=== PATIENT | female | born 1980 | race Caucasian/White ===

== ENCOUNTER 2018-11-05 20:55 | Observation (INO) | payer OTHER ==
[~2018-11-05 20:55] MED LIST: ISOVUE-370 76%-LOCM 1 ML ONE
--- NOTE | 2018-11-05 21:21 | CT ---
CT brain. HISTORY: Stroke. Facial droop. Noncontrast enhanced CT images of brain obtained. The brain is unremarkable. No evidence of acute hemorrhages strokes or contusion seen. IMPRESSION: Normal CT brain.
[2018-11-05 21:36] LABS: #Eosinphils 0.1 thou/uL (0.0-0.7); #Lymphocytes 4.5 thou/uL (1.20-3.40); #Monocytes 0.7 thou/uL (0.11-0.59); #Neutrophils 11.6 thou/uL (1.40-6.50); %Basophils 0.2 % (0.0-1.0); %Eosinophils 0.7 % (0.0-10.0); %Lymphocytes 26.5 % (21.0-51.0); %Monocytes 4.3 % (0.0-10.0); %Neutrophils 68.2 % (42.0-75.0); Mean Corpuscular Hemoglobin 27.9 pg (27.0-31.0); Mean Corpuscular Volume 84.6 fL (78.0-98.0); Mean Platelet Volume 8.9 fL (7.4-10.4); Platelet Count 299 thou/uL (130-400); RBC Distribution Width 14.4 % (11.5-14.5); Red Blood Cell (RBC) Count 4.67 mill/uL (4.20-5.40)
--- NOTE | 2018-11-05 21:40 | CT ---
Carotid and intracranial CTA. HISTORY: Left facial drooping. Contrast-enhanced CTA carotid arteries and intracranial CTA performed. 2-D and 3-D reconstruction lula ges performed on an independent 3-D workstation. The visualized portion of the aortic arch is unremarkable. The right brachiocephalic artery is patent. The right and left common carotid, internal carotid, external carotid arteries are patent. The petrou s, cavernous and supraclinoid ICAs are patent. The right and left STEVE and MCA vessels are patent. The right and left vertebral arteries are patent. The basilar artery and posterior cerebral arteries are patent. IMPRESSION: Normal carotid and intracranial CTA.
[2018-11-05 21:44] LABS: PTT 26.2 SEC (22.9-36.1); Prothrombin Time 13.2 SEC (12.0-14.7)
[2018-11-05 21:57] LABS: BHCG - Serum Negative (NEGATIVE); Pregs Control Background? CLEAR/WHITE (CLR/WHITE); Pregs Control Bar Appear? YES (CONTROL BAR)
[2018-11-05 22:11] LABS: ALT (SGPT) 15 U/L (8-55); AST (SGOT) 16 U/L (5-34); Albumin 4.2 g/dL (3.5-5.0); Alkaline Phosphatase 88 U/L (40-150); Anion Gap 13 mmol/L (10-20); BUN (Urea Nitrogen) 8 mg/dL (7.0-18.7); Bilirubin, Total 0.2 mg/dL (0.2-1.2); CK (CPK) 118 U/L (29-168); Calc. Creatinine Clearance 0 mL/min (70-130); Calcium 9.2 mg/dL (7.8-10.44); Carbon Dioxide 24 mmol/L (22-29); Chloride 107 mmol/L (98-107); Estimated GFR-MDRD 63; Globulin 3.1 g/dL (2.4-3.5); Glucose 87 mg/dL (70-105); Potassium 3.7 mmol/L (3.5-5.1); Protein, Total 7.3 g/dL (6.0-8.3); Sodium 140 mmol/L (136-145)
[2018-11-05] MEDS ORDERED: Aspirin Chewable 81 MG TAB ONE (22:22)
--- NOTE | 2018-11-05 22:50 | RAD ---
AP view chest. HISTORY: Stroke. AP view chest obtained. The lungs are well aerated. No evidence of active intrathoracic disease seen. No evidence of effusions, pneumonia or pneumothorax seen IMPRESSION: unremarkable AP view chest.
[2018-11-05 23:27] LABS: Bilirubin Negative (Negative); Blood, Urine Negative (Negative); Clarity CLEAR (Clear); Glucose, Urine (Dipstick) Negative (Negative); Leukocyte Negative (Negative); Nitrite Negative (Negative); Protein, Urine (Dipstick) Negative (Neg-Trace); Urobilinogen 0.2 mg/dL (0.2-1.0); pH, Urine 5.5 (5.0-9.0)
[2018-11-05 23:29] LABS: Specific Gravity, Urine 1.057 (1.002-1.036)
[2018-11-06 01:13] LABS: Troponin I Less than 0.010 ng/mL (< 0.028)
[2018-11-06 02:40] VITALS: BMI 40.2
[2018-11-06 04:49] LABS: Troponin I Less than 0.010 ng/mL (< 0.028)
[2018-11-06] MEDS ORDERED: Senokot S 8.6-50 MG TAB PO PRN (07:35)
[2018-11-06] MEDS ORDERED: Eucerin (Mineral Oil/Petrolatum,White) 30 gm Jar TOP PRN (07:35)
[2018-11-06] MEDS ORDERED: Sodium Chloride 0.65% Nasal 44 ML BOT EA NARE PRN (07:35)
[2018-11-06] MEDS ORDERED: Acetaminophen 325 MG TAB PO PRN (07:35)
[2018-11-06] MEDS ORDERED: Ondansetron ODT 4 MG TAB PO PRN (07:35)
[2018-11-06] MEDS ORDERED: Calcium Carbonate 500 MG ChewTAB PO PRN (07:35)
[2018-11-06] MEDS ORDERED: Ondansetron PF 4 MG/2 ML Vial IVP PRN (07:35)
[2018-11-06] MEDS ORDERED: Loperamide HCl 2 MG CAP PO PRN (07:35)
[2018-11-06] MEDS ORDERED: Zolpidem Tartrate 5 MG TAB PO PRN (07:35)
[2018-11-06] MEDS ORDERED: Loratadine 10 MG TAB PO PRN (07:35)
[2018-11-06] MEDS ORDERED: Cepastat Lozenges 1 LOZ PO PRN (07:35)
[2018-11-06] MEDS ORDERED: Bisacodyl 10 MG SUPP PR PRN (07:35)
[2018-11-06] MEDS ORDERED: HYDROcodone/Acetaminophen 5/325 mg Tablet PO PRN (07:35)
[2018-11-06] MEDS ORDERED: hydrALAZINE 20 MG/ML VIAL SLOW IVP PRN (07:35)
[2018-11-06] MEDS ORDERED: Artificial Tears 18 DROP/0.9 ML EA EYE PRN (07:35)
[2018-11-06] MEDS ORDERED: Diabetic Tussin 200 MG/10 ML UDCUP PO PRN (07:35)
[2018-11-06] MEDS ORDERED: NORETHINDRONE AC ETH ESTRADIOL PO SCH (09:00)
[2018-11-06] MEDS ORDERED: Famotidine 20 MG TAB PO SCH (09:00)
--- NOTE | 2018-11-06 10:30 | MRI ---
MRI BRAIN WITH AND WITHOUT CONTRAST: SEVENTH (FACIAL) CRANIAL NERVE PROTOCOL Date: 11/06/2018 HISTORY: 38-year-old female with left facial droop TECHNIQUE: Multiple sequences obtained in axial, sagittal, and coronal planes; both whole brain images and thin slices through the paths of the 7th cranial nerves, pre and post IV injection of gadolinium-based contrast agent. FINDINGS: The ventricles are normal in size and configuration. There is no moderate sized or large cortical inf arction of any age, restricted diffusion, abnormal intra-axial enhancement, mass, midline shift or any other mass effect, recent intra-axial hemorrhage, or extra-axial fluid collection. There are numerous small, subcentimeter focal T2 hyperintense lesions in the bifrontal subcortical an d deep white matter. These are nonspecific, but probably represent chronic ischemic white matter changes due to microvascular atherosclerosis. Multiple sclerosis is not excluded, although the lesion s are not necessarily highly characteristic of MS plaques. There is no involvement of the brachium pontis, cerebellum, or brainstem. There is no abnormal enhancement, mass, or morphologic abnormality, involving the cerebellopontine an gles, seventh-8th nerve complexes, internal auditory canals, cochleae, vestibules, vestibular aqueducts, or semicircular canals. The degree of mild enhancement of the cranial nerves VII is symmet rical bilaterally. There is no evidence of any parotid neoplastic tumor. IMPRESSION: 1. Mild chronic ischemic white matter changes, significantly greater than expected for this age (38 y ears). 2. Otherwise negative.
[2018-11-06] MEDS ORDERED: Gadobenate Dimeglumine 529 MG/1 ML (20ML VIAL) ONE (11:50)
--- NOTE | 2018-11-06 11:51 | SS ---
DATE OF ADMISSION: 11/06/2018 DATE OF DISCHARGE: 11/06/2018 PRIMARY CARE PHYSICIAN: [facility] Call admission. REASON FOR ADMISSION: Facial drooping. HISTORY OF PRESENT ILLNESS: A 38-year-old female who has no significant past medical history, who presented to the emergency room with facial drooping. She reports that for 1 week, she was experiencing difficulty swallowing. On Sunday , she also noticed heaviness on the left side of face and facial drooping, which was happening intermittently. She also noticed some slurring of speech. She was also having difficulty holding objects with right hand sometimes, but she did not have any motor weakness. Subsequently, she did not have any hoarseness of voice or any hearing problem. She denies any diplopia. She denies any headaches. She denies any chest pain, palpitation, shortness of breath. She denies any UTI symptoms. She denies any constipation, diarrhea, melena, or hematochezia. She denies any unsteadiness or focal motor deficit. The patient was also evaluated by primary care physician and the patient also reports that many family members and many co- workers noticed that her face was asymmetric. In the emergency room, the patient had CT brain and CT [place], both were negative. Chest x-ray was normal. Routine blood test only showed leukocytosis. This patient denies any travel or any skin rash. She denies any upper or lower respiratory symptoms. REVIEW OF SYSTEMS: CONSTITUTIONAL: Negative for weight loss or gain, ability to conduct usual activities. SKIN: Negative for rash, itching. EYES: Negative for double vision, pain. ENT/MOUTH: Negative for nose bleeding, neck stiffness, pain, tenderness. CARDIOVASCULAR: Negative for palpitations, dyspnea on exertion, orthopnea. RESPIRATORY: Negative for shortness of breath, wheezing, cough, hemoptysis, fever or night sweats. GASTROINTESTINAL: Negative for poor appetite, abdominal pain, heartburn, nausea , vomiting, constipation, or diarrhea. GENITOURINARY: Negative for urgency, frequency, dysuria, nocturia. MUSCULOSKELETAL: Negative for pain, swelling. NEUROLOGIC/PSYCHIATRIC: Negative for anxiety, depression. ALLERGY/IMMUNOLOGIC: Negative for skin rash, bleeding tendency. Please see my HPI for pertinent positives and negatives. All other review of systems reviewed and negative except as mentioned in the HPI. PAST MEDICAL HISTORY: Reviewed and negative. PAST SURGICAL HISTORY: , dental work. PAST PSYCHIATRIC HISTORY: Reviewed and negative. SOCIAL HISTORY: The patient drinks alcohol socially. She denies any smoking. She denies any other illicit drug abuse. 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 FAMILY HISTORY: No strong family history of premature coronary artery disease, stroke, or cancer. ALLERGIES: NO KNOWN DRUG ALLERGIES. CURRENT HOME MEDICATIONS: The patient is taking [id number] medication and control pill. PHYSICAL EXAMINATION: VITAL SIGNS: On arrival, blood pressure 141/86, pulse 99, respiratory rate 18, temperature 99.1, saturation 97% on room air. Weight 96.5 kg. GENERAL: The patient is currently alert and oriented x3. HEENT: Head; normocephalic, atraumatic. Eyes; pupils round, reactive to light. Extraocular muscle intact. No nystagmus. ENT; oropharynx within normal limits. Ear examination normal. NECK: Supple. No JVD. No thyromegaly. No carotid bruit. LUNGS: Clear to auscultation without any rhonchi or rales. CARDIAC: S1, S2. Regular without any murmur. ABDOMEN: Soft. Bowel sounds present. Nontender. Nondistended. No organomegaly. No mass. No suprapubic tenderness. BACK: Unremarkable. No CVA tenderness. EXTREMITIES: Upper extremity passive movement of all joints are normal. Lower extremity, no edema. Good distal pulsation. SKIN: No skin rash. HEMATOLOGICAL: No lymphadenopathy. NEUROLOGIC: The patient is alert and oriented x3. Cranial nerve, I noticed only a right-sided facial droop, but it seems like upper motor neuron facial droop. Clinically, does not have any lower motor neuron facial palsy. Other than that , the patient does not have any other cranial nerve abnormality. There is no focal motor or sensory deficit in either extremity. No cerebellar sign. EMERGENCY ROOM COURSE: The patient is given aspirin 325 mg p.o. one time dose. SIGNIFICANT LABORATORY DATA: CT brain based on my review, no acute intracranial process. CT angiography, no acute process. Chest x-ray normal. EKG normal sinus rhythm. CBC; WBC 17.0, hemoglobin 13.0, platelet 299. INR 1.0. BMP; sodium 140, potassium 3.7, chloride 107, carbon dioxide 24, anion gap 13, BUN 8, creatinine 0.99, glucose 87, calcium 9.2. LFTs; AST 16, ALT 15, alkaline phosphatase 88, albumin 4.2. Cardiac enzyme negative x3. test negative. Triglyceride 70, cholesterol 160, LDL 106, HDL 40. Urinalysis normal. ASSESSMENT/PLAN: 1. Right-sided facial droop, unclear etiology. Clinically does not look like Santiago's palsy given sparing of eyebrows and forehead. The patient also reports some difficulty swallowing, so another cranial nerve IXth nerve involvement is possible. At this point, clinically, I am suspecting the patient has isolated VII and IXth nerve probable involvement. Her CT brain and CT [place] both are negative. She does not have any other focal neurological deficit. She does not have any skin rash to suspect any Lyme disease given no recent travel history. At this point , we will try to do MRI brain to rule out any white matter changes. Based on her age group, differential diagnosis is multiple sclerosis. We will consult Neurology as well for their opinion. If Neurology okay and if the MRI brain is normal, then possibly we can discharge her with outpatient followup. 2. Leukocytosis, unclear etiology, but benign. The patient had low-grade fever in the emergency room, suspecting some viral. If she stays overnight, then probably we may need to do CBC. Otherwise, she can follow up with outpatient basis. She has normal urinalysis, normal chest x-ray. Does not suspect any infection and does not need any antibiotic therapy. 3. Morbid obesity with BMI of 40. Dietary education given. Weight loss education given. Healthy lifestyle measure discussed with the patient. 4. Deep venous thrombosis prophylaxis not needed because we are expecting discharge soon. 5. Gastrointestinal prophylaxis. Here in the hospital, we will give her Pepcid 20 mg b.i.d. DISPOSITION PLAN: Based on Neurology's recommendation and MRI brain. DISCHARGE DISPOSITION: Home. PRIMARY DISCHARGE DIAGNOSES: Right-sided facial droop, leukocytosis. SECONDARY DISCHARGE DIAGNOSIS: Obesity with BMI 40. PRIMARY PROCEDURE/OPERATION: None. RADIOLOGICAL INVESTIGATION: CT brain, CT [place] of [place], chest x-ray, MRI brain. SIGNIFICANT LABORATORY DATA: WBC 17.0, otherwise all blood tests normal. DISCHARGE MEDICATIONS: The patient will continue her control pill as directed. CONTRAINDICATION: None. CODE STATUS: Full code. INPATIENT REGISTRY RN: Jacob Mercedes MD, neurologist. TEST RESULTS PENDING ON DISCHARGE: None. DISCHARGE PLAN: Posthospital, the patient needs to follow up with Neurology after discharge. HOSPITAL COURSE: Please see my HPI. This patient was admitted for facial droop. She had nonspecific leukocytosis. We did all kind of workup and we are just waiting for MRI brain and Neurology recommendation. If MRI brain is okay and Neurology okay, then the patient may be able to be discharged home later on today. MRI SHOWED WHITE MATTER CHANGES MORE THAN EXPECTED FOR HER AGE Neurology recommended Keppra 500 mg po bid and outpt follow up. Pt is comfortable to go home today. Patient is admitted and discharged on same day Job ID: [id number] [facility]
[2018-11-06 15:48] VITALS: BP 122/73; TEMP 98.8
[2018-11-06 17:24] LABS: PTT 26.8 SEC (22.9-36.1)
[2018-11-06 17:26] LABS: D-Dimer Test 0.42 *mcg/mL (0.27-0.43)
[2018-11-06] MEDS ORDERED: levETIRAcetam 500 MG TAB PO SCH ×2 (17:45→21:00)
[2018-11-07] MEDS ORDERED: Aspirin Chewable 81 MG TAB PO SCH (09:00)
[2018-11-07 10:48] LABS: Protein C Activity 110 % (78-152)
[2018-11-07 12:39] LABS: Cardiolipin IgA Ab 5.1 APL-U/mL (<14 Negative); Cardiolipin IgG Ab Less than 0.5 GPL-U/mL (<10 Negative); EliA APS New Method **** NEW METHOD ****
[2018-11-13 21:07] LABS: Activated Protein C Resistance 2.4 ratio (.)
[2018-11-14 10:59] LABS: Factor VIII Test 187.4 % ACTIVE (56-157)
[2018-11-14 11:36] LABS: HEX PHOS LA Tube 1 56.5 SEC; HEX PHOS LA Tube 2 47.8 SEC; Hexagonal Phospholipid Neut 8.7 SEC (0-8.0)
== END 2018-11-06 18:55 | disposition home or self-care (01) ==
LOC: ERS 20:55 → 2SE 11-06 01:04
PROVIDERS: ADMIT Hospitalist; ATTEND Hospitalist
DX: R29.810 Facial weakness (principal); D72.829 Elevated white blood cell count, unspecified; E66.01 Morbid (severe) obesity due to excess calories; Z68.41 Body mass index [BMI] 40.0-44.9, adult
CPT/HCPCS: 36415; 36416; 70450; 70496; 70498; 70553; 71045; 80053; 80061; 81003; 81240; 81241; 82550; 83090; 84484; 84703; 85025; 85240; 85300; 85303; 85305; 85307; 85379; 85598; 85610; 85730; 86147; 93005; A9577; G0378; Q9966

== ENCOUNTER 2019-04-07 15:44 | Outpatient (CLI) | payer OTHER ==
--- NOTE | 2019-04-08 14:15 | EEG ---
Referring Physician: LLOYD DICKINSON EEG # [id number] TEST TYPE: ROUTINE PORTABLE INPATIENT REPORT: AN EEG USING THE [employer] TEN-TWENTY SYSTEM OF ELECTRODE PLACEMENT WAS PERFORMED. The waking background is a medium amplitude 9 hertz alpha frequency. The patient remained awake throughout the study. Photic stimulation was unremarkable. Two events occurred during the tracing which failed to reveal any epileptiform features associated with the patient's behavior. IMPRESSION: THIS IS A NORMAL AWAKE EEG WITHOUT EVIDENCE OF SEIZURE ACTIVITY ASSOCIATED WITH THE PATIENT'S BEHAVIORAL EVENTS. Quantitative Strategy Analyst: LILLY [employer]amping Press Operator: [email or web address]
== END 2019-04-07 15:45 | disposition home or self-care (01) ==
LOC: EEG 15:44
PROVIDERS: ATTEND Psychiatry & Neurology Neurology
DX: R56.9 Unspecified convulsions (principal)
CPT/HCPCS: 95816

== ENCOUNTER 2019-04-08 19:05 | Emergency (ER) | payer OTHER ==
[2019-04-08 19:43] LABS: #Basophils 0.1 thou/uL (0.0-0.2); #Eosinphils 0.2 thou/uL (0.0-0.7); #Lymphocytes 2.4 thou/uL (1.20-3.40); #Monocytes 0.6 thou/uL (0.11-0.59); #Neutrophils 8.8 thou/uL (1.40-6.50); %Basophils 0.7 % (0.0-1.0); %Eosinophils 1.3 % (0.0-10.0); %Lymphocytes 19.8 % (21.0-51.0); %Monocytes 5.1 % (0.0-10.0); %Neutrophils 73.1 % (42.0-75.0); Mean Corpuscular HGB CONC 33.1 g/dL (32.0-36.0); Mean Corpuscular Hemoglobin 28.1 pg (27.0-31.0); Mean Corpuscular Volume 85.1 fL (78.0-98.0); Mean Platelet Volume 8.5 fL (7.4-10.4); Platelet Count 264 thou/uL (130-400); RBC Distribution Width 15.2 % (11.5-14.5); Red Blood Cell (RBC) Count 4.62 mill/uL (4.20-5.40)
[2019-04-08 20:08] LABS: ALT (SGPT) 23 U/L (8-55); AST (SGOT) 19 U/L (5-34); Alkaline Phosphatase 118 U/L (40-110); Anion Gap 11 mmol/L (10-20); BUN (Urea Nitrogen) 8 mg/dL (7.0-18.7); Bilirubin, Total 0.2 mg/dL (0.2-1.2); Calc. Creatinine Clearance 0 mL/min (70-130); Calcium 9.1 mg/dL (7.8-10.44); Carbon Dioxide 27 mmol/L (22-29); Chloride 104 mmol/L (98-107); Estimated GFR-MDRD 56; Glucose 86 mg/dL (70-105); Potassium 3.7 mmol/L (3.5-5.1); Sodium 138 mmol/L (136-145)
== END 2019-04-08 21:04 | disposition home or self-care (01) ==
LOC: ERS 19:05
DX: R56.9 Unspecified convulsions (principal); F41.9 Anxiety disorder, unspecified; Z79.899 Other long term (current) drug therapy
CPT/HCPCS: 80053; 85025; 93005; 96360